=== PATIENT | male | born 1965 | race Caucasian/White ===

== ENCOUNTER 2018-01-04 08:23 | Day surgery (SDC) | payer OTHER ==
[2018-01-04] MEDS ORDERED: PROPOFOL 10 MG/ML VIAL IV ONE (08:24)
[2018-01-04] MEDS ORDERED: LIDOCAINE 2% MDV (20MG/ML) 20ML VIAL IV ONE (08:24)
--- NOTE | 2018-01-04 14:00 | Operative Note ---
DATE OF SURGERY: 01/04/2018 OPERATION: ESOPHAGOGASTRODUODENOSCOPY with multiple biopsies. INDICATION: Recurring pyrosis, rule out gastroesophageal reflux disease. ANESTHESIA: Intravenous sedation was administered by the department of anesthesiology and included Diprivan titrated to effect. HISTORY: The patient is a pleasant 52-year-old gentleman who has had long-standing history of intermittent pyrosis. He has had attempts at treatment with Nexium, Prilosec, and Prevacid without benefit. He takes antacids on an as-needed basis. Upper endoscopy is performed at this time for further evaluation. PROCEDURE: Following informed consent from this alert individual, including a discussion of the risks and benefits of the procedure and an opportunity for the patient to ask questions, the patient was in the left lateral decubitus position. The Olympus LVJ028 video endoscope was inserted into the esophagus without resistance. The proximal esophagus had a normal appearance with normal folds and distensibility. The mid esophagus likewise was free from changes. The distal esophageal segment revealed some slight irregularity at the squamocolumnar junction with a very superficial minute 2-3 mm ulceration. Biopsies were taken from this area. The stomach was then entered. The gastric fundus and pars media had a normal appearance with normal folds and distensibility. The antrum evaluated circumferentially demonstrated some focal patchy erythema. No ulcerations or erosions were noted. Biopsies from throughout the stomach were obtained to assess for Helicobacter pylori and check histology. The pylorus was patent. The duodenal bulb, sweep and descending duodenum were examined in a serial fashion and found to be normal. The endoscope was then drawn back into the body of the stomach. Retroflexion accomplished following air insufflation failed to demonstrate any changes. The lower esophageal sphincter was widely patent. The endoscope was then straightened and withdrawn. The patient tolerated the procedure well and was returned to the recovery area in stable condition. IMPRESSION: 1. Minute superficial ulceration at the GE junction with slight irregularity of the squamocolumnar junction with erythema. Biopsies taken. 2. Mild antral gastritis. Biopsies taken from throughout the stomach to check for Helicobacter pylori and check histology. 3. Normal duodenum. RECOMMENDATION: I will discuss a clinical trial with Protonix 40 mg daily. Further recommendations may be forthcoming pending results of pathology obtained today. The patient can follow up in the GI clinic in 2-3 months' time. Followup will also be with Dr. Jose Camacho. As always, thank you for allowing me to participate in the care of your patient. CC: Jose VAZQUEZ
== END 2018-01-04 10:48 | disposition home or self-care (01) ==
LOC: HOP 08:23
PROVIDERS: ATTEND Internal Medicine Gastroenterology
DX: R12 Heartburn (principal); K25.9 Gastric ulcer, unspecified as acute or chronic, without hemorrhage or perforation; K29.70 Gastritis, unspecified, without bleeding